=== PATIENT | female | born 1995 | race Caucasian/White ===

== ENCOUNTER 2019-02-19 23:49 | Emergency (ER) | payer SELFPAY ==
[2019-02-20] VITALS (11 sets, daily range): BP systolic 104–118; BP diastolic 63–71; PULSE 113–133; RESP 13–19; TEMP 36.9–38.8; O2SAT 94–97
--- NOTE | 2019-02-20 00:35 | ED.GENADUL_ITS ---
Discharge Plan Disposition Patient Disposition: HOME Condition: Good Discharge Details Chief Complaint: Abd Prob Clinical Impression: Viral illness, Vomiting Primary Care Provider: Yinka Farnsworth ED Provider: Boo Ruiz Meds and New Rx's Prescriptions: New ondansetron 4 mg tablet,disintegrating 4 mg PO Q6H PRN (Reason: nausea and vomiting) Qty: 10 RF: 0 Discharge Instructions Instructions: Viral Syndrome (ED) Additional Instructions: Please use acetaminophen or ibuprofen for fever and discomfort. Use ondansetron for nausea and vomiting. Stay hydrated. Rest. Follow-up with primary care next week if not feeling better. Return to ED for mental status changes, difficulty breathing, persistent vomiting, worsening abdominal pain, other problems or concerns. Stand Alone Forms: Work Release Referrals: Yinka Farnsworth [Primary Care Provider] - Discharge Data Discharge Date/Time-TO BE ENTERED AT DEPARTURE: 02/20/19 03:55 Medical Decision Making Patient presenting with complaints of fever, URI symptoms, vomiting. She has some frontal sinus pain and pressure. She does not have headache per se. She is normal neurologically. IV established and 2 L of LR ordered due to the tachycardia. Laboratory studies and chest x-ray ordered. CBC is normal. Chemistries unremarkable. Liver function normal. Chest x-ray normal. Temperature did come down to normal after Tylenol. Heart rate down to 110. She feels much better. Likely viral illness. Supportive care only at this point. No antibiotics. Will receive prescription for Zofran. Stay home, rest, hydrate. Follow-up with primary care next week if not better. Return to ED if worse. Lab Data Lab results reviewed: Yes I reviewed the patient's lab results. HPI General Mode of arrival: ambulatory . Date/Time Provider Initiated Documentation: 02/20/19 00:03 . Limitations to Documentation: no limitations . Information obtained by: patient . HPI Narrative: Patient presents to ED with complaint of not feeling well. She reports waking up this morning with cough and cold symptoms. Subsequently developed frontal headache and sinus pressure. Continues to have cough. Does not feel short of breath. She is developed nausea and vomiting has been unable to keep anything down through the afternoon. Denies having chest pain or abdominal pain to me. She reports having fevers and sweats. Denies earache. Has mild throat pain. Eyes no rash. She feels lightheaded and dizzy when standing. Related Data Home Medications Medication Instructions Recorded Confirmed ondansetron 4 mg PO Q6H PRN #10 tab 02/20/19 Previous Rx's Medication Instructions Recorded ondansetron 4 mg PO Q6H PRN #10 tab 02/20/19 Allergies Allergy/AdvReac Type Severity Reaction Status Date / Time No Known Allergies Allergy Verified 02/20/19 03:44 General Stated Complaint: Abd Prob CLARISSA: 3 Review of Systems Narrative: 12/09 Review of Systems completed and is negative except as stated above in HPI (Systems reviewed: Const, Eyes, ENT, Resp, CV, GI, , MSK, Skin, Neuro) PFSH Medical History No active medical problems (Acute) Surgical History No significant past surgical history (Acute) Social History Smoking/Tobacco Use Status: Never Alcohol Intake: current Alcohol Intake frequency: holidays/special occasions only Drug use: Occasionally Substance use type: marijuana Do you feel safe at home: Yes Do you feel safe in your relationship?: Yes Exam Narrative Exam Narrative: Vitals: Initial temp 100.0. Heart rate 130. Normal blood pressure. Saturations mid 90s. Const: Obese female in NAD. HEENT: NC/AT. TMs not well visualized secondary to cerumen present. Some frontal sinus discomfort with palpation. No significant maxillary sinus tenderness. Oropharynx is clear. Eyes: Normal conjunctiva and sclera. Neck: Supple. Trachea midline. Mild anterior adenopathy. Lungs: Normal respiratory effort. Lungs are clear. Cor: RRR without murmur/gallop. Tachycardic. Good radial pulses. GI: Soft. NT/ND. No guarding or rebound. Neuro: A+O x 3. CN grossly in tact. Good strength and no focal deficit. Ext: No C/C/E. No calf tenderness. Skin: Warm and dry without rash. Course Vital Signs Vital signs: Vital Signs Temperature 100.0 F H 02/20/19 00:01 Pulse 130 H 02/20/19 00:01 Respiratory Rate 18 02/20/19 00:01 Blood Pressure 118/64 02/20/19 00:01 Pulse Oximetry 94 L 02/20/19 00:01 Temperature 100.0 F H 02/20/19 00:01 Temperature Source Skin 02/20/19 00:01 Pulse 130 H 02/20/19 00:01 Respiratory Rate 18 02/20/19 00:01 Respiratory Effort 02/20/19 00:06 Blood Pressure 118/64 02/20/19 00:01 Blood Pressure Position Supine 02/20/19 00:01 Pulse Oximetry 94 L 02/20/19 00:01 Oxygen Delivery Method Room Air 02/20/19 00:01 Oxygen Flow Rate 0 02/20/19 00:01 Pain Level 9 02/20/19 00:01
[2019-02-20] MEDS: Lactated Ringers 2,000 ML 1000 ML IV (01:20)
[2019-02-20] MEDS: Ondansetron 4 MG/2 ML VIAL IVP (01:21)
[2019-02-20 01:36] LABS: Abs Immature Grans 0.03 k/cumm (0.0-0.09); Absolute Basophil Count 0.02 k/cumm (0.0-0.2); Absolute Eosinophil Count 0.07 k/cumm (0.0-0.7); Absolute Lymphocyte Count 0.52 k/cumm (1.2-3.4); Absolute Monocyte Count 0.86 k/cumm (0.11-0.7); Absolute Neutrophil Count 6.96 k/cumm (1.2-6.7); Basophils % 0.2; Eosinophils % 0.8; HCT 40.5 % (36.0-46.0); HGB 13.8 g/dL (12.0-15.5); Immature Grans % 0.4; Lymphocytes % 6.1; Mean Corp. HGB Concentration 34.1 g/dL (32.0-36.0); Mean Corpuscular Hemoglobin 30.6 pg (27.0-33.0); Mean Corpuscular Volume 89.8 fL (80-95); Mean Platelet Volume 9.4 fL (8.0-11.0); Monocytes % 10.2; Neutrophils % 82.3; Platelet Count 271 x1000/uL (130-400); RBC 4.51 m/cumm (4.00-5.20); RBC Distribution Width 12.6 % (11.7-14.6); White Blood Cell Count 8.46 k/cumm (4.4-10.8)
--- NOTE | 2019-02-20 01:44 | DI.RAD_ITS ---
EXAM: XR CHEST 2V PA LATERAL CLINICAL HISTORY: cough, fever. TECHNIQUE: 2D digital imaging was performed. COMPARISON: No exams were available for comparison FINDINGS: LUNGS: Clear. No pleural abnormality seen. HEART: Normal. MEDIASTINUM: Normal. OTHER FINDINGS:Normal. IMPRESSION: No acute pulmonary findings.
[2019-02-20 01:51] LABS: ALT 22 U/L (14-59); AST 18 U/L (15-37); Albumin 3.7 g/dL (3.4-5.0); Alkaline Phosphatase 102 U/L (46-116); Anion Gap 11.7 mmol/L (3-11); BUN 8 mg/dL (7-18); Bilirubin, Total 0.3 mg/dL (0.2-1.0); CO2 26.3 mmol/L (21.0-32.0); CREATININE 0.76 mg/dL (0.55-1.02); Calcium 8.9 mg/dL (8.5-10.1); Chloride 99 mmol/L (98-107); Glucose 106 mg/dL (74-106); Potassium 3.8 mmol/L (3.5-5.1); Sodium 137 mmol/L (136-145); Total Protein 8.5 g/dL (6.4-8.2)
--- NOTE | 2019-02-20 01:59 | DI.VRAD_ITS ---
PROCEDURE INFORMATION: Exam: XR Chest, 2 Views Exam date and time: 02/20/2019 1:38 AM Age: 23 years old Clinical indication: Cough and fever TECHNIQUE: Imaging protocol: XR of the chest Views: 2 views. COMPARISON: No relevant prior studies available. FINDINGS: Lungs: Unremarkable. No consolidation. Pleural space: Unremarkable. No pleural effusion. No pneumothorax. Heart/Mediastinum: Unremarkable. No cardiomegaly. Bones/joints: Unremarkable. IMPRESSION: No acute findings. Dictated and Authenticated by: Srini Bishop MD. Ordering:CATHLEEN Haddad MD
[2019-02-20] MEDS: Acetaminophen 500 MG TAB 1000 MG PO (02:06)
== END 2019-02-20 03:55 | disposition home or self-care (01) ==
PROVIDERS: Emergency Provider Emergency Medicine; PCP Internal Medicine
DX: R11.2 Nausea with vomiting, unspecified (principal); R50.9 Fever, unspecified; R00.0 Tachycardia, unspecified; B34.9 Viral infection, unspecified
CPT/HCPCS: 36415; 80053; 96361; 96374; 99284; 71046; 85025; J2405